=== PATIENT | male | born 1990 | race Caucasian/White ===

== ENCOUNTER 2021-04-21 18:00 | Emergency (ER) | payer BC ==
[2021-04-21] MEDS ORDERED: ZOFRAN ODT 4 MG4 MG PO (21:35)
[2021-04-21] MEDS ORDERED: AZITHROMYCIN250 MG PO (21:35)
[2021-04-21] MEDS ORDERED: DECADRON6 MG PO (21:35)
== END 2021-04-21 22:13 | disposition home or self-care (01) ==
LOC: ER1 18:00
DX: U07.1 COVID-19 (principal); J12.82 Pneumonia due to coronavirus disease 2019; Z90.49 Acquired absence of other specified parts of digestive tract
CPT/HCPCS: 71045; 99283; U0003